=== PATIENT | male | born 1960 | race Caucasian/White ===

== ENCOUNTER 2017-08-24 10:59 | Day surgery (SDC) | payer OTHER ==
[2017-08-17 08:18] VITALS: BMI 25.3
[2017-08-24] VITALS (15 sets, daily range): BP systolic 95–112; BP diastolic 63–74; PULSE 64–80; RESP 11–21; Ht 162.6 cm; Wt 70.8 kg
[~2017-08-24] VITALS: Ht 162.6 cm; Wt 70.8 kg
[~2017-08-24 10:59] MED LIST: ATOR10TA65 PO; BUSP10TA2 PO; OMEP20CA16 PO
[2017-08-24] MEDS ORDERED: FLUO20CA38 PO (11:31)
[2017-08-24] MEDS ORDERED: TAMS-14 PO (11:31)
[2017-08-24] MEDS ORDERED: OXYC-279 PO (11:31)
[2017-08-24] MEDS ORDERED: CEPH500C PO (11:32)
[2017-08-24] MEDS ORDERED: HYDROmorphONE (0.2 MG/ML) 10ML SYG IV PRN ×3 (12:00)
[2017-08-24] MEDS ORDERED: METOCLOPRAMIDE 10 MG INJ IV PRN (12:00)
[2017-08-24] MEDS ORDERED: ONDANSETRON 4 MG INJ IV PRN (12:00)
[2017-08-24] MEDS ORDERED: FENTAnyl 50 MCG/ML VIAL IV PRN ×2 (12:00)
[2017-08-24] MEDS ORDERED: DIPHENHYDRAMINE 50 MG INJ IV PRN (12:00)
[2017-08-24] MEDS ORDERED: MEPERIDINE 25 MG INJ IV PRN (12:00)
[2017-08-24] MEDS ORDERED: NEOMYC/POLYMYX/BACIT 30 GM OINT ONE (12:32)
[2017-08-24] MEDS ORDERED: POLYMYXIN/BACITRACIN 1L IRRIG ONE (12:32)
[2017-08-24] MEDS ORDERED: ROPIVACAINE 0.5 % 30 ML VIAL ONE ×2 (12:32→12:44)
[2017-08-24] MEDS ORDERED: BUPIVACAINE 0.5% (SDV) 30 ML INJ ONE (12:32)
[2017-08-24] MEDS ORDERED: MIDAZOLAM 1 MG/ML 2 ML INJ ONE (12:44)
[2017-08-24] MEDS ORDERED: FENTAnyl 50 MCG/ML VIAL ONE (12:44)
--- NOTE | 2017-08-24 13:25 | HPN ---
Date/Time of Note Date/Time of Note DATE: 08/24/17 TIME: 13:25 Interval H&P Admission Note Pt. seen H&P reviewed: No system changes CHRISTIANO SOUZA MD Aug 24, 2017 13:25
[2017-08-24] MEDS ORDERED: BUPIVACAINE 0.25% (MPF) 30 ML INJ ONE (14:02)
[2017-08-24] MEDS ORDERED: SUGAMMADEX SODIUM 200 MG/2 ML VIAL IV ONE (14:20)
[2017-08-24] MEDS ORDERED: LIDOCAINE 2% (SDV) 5 ML INJ ONE (14:20)
[2017-08-24] MEDS ORDERED: CEFAZOLIN 1 GM INJ ONE (14:20)
[2017-08-24] MEDS ORDERED: SUCCINYLCHOLINE CHLORIDE 100 MG/5 ML SYG IV ONE (14:20)
[2017-08-24] MEDS ORDERED: PROPOFOL 20 ML ONE (14:20)
[2017-08-24] MEDS ORDERED: ROCURONIUM 50 MG INJ ONE (14:20)
[2017-08-24] MEDS ORDERED: PROVENTIL HFA 6.7GM INHALER ONE (14:52)
--- NOTE | 2017-08-24 16:00 | SIPON ---
Date/Time of Note Date/Time of Note DATE: 08/24/17 TIME: 15:59 Operative Report Preoperative Diagnosis Left ankle painful hardware Postoperative Diagnosis Left ankle painful hardware Operation/Procedure Performed Left ankle hardware removal Surgeon David Souza legal administrative assistant none Anesthesia: general, other (popliteal block) Estimated blood loss: none Transfusion Required none Specimen none Grafts/Implants none Complications none DAVID SOUZA MD Aug 24, 2017 16:00
--- NOTE | 2017-08-24 17:48 | RADRPT ---
PROCEDURE: Intraoperative imaging of the left ankle with fluoroscopy. CLINICAL INDICATION: Left ankle pain. Intraoperative. TECHNIQUE: 5 images of the left ankle were obtained in the operating room with an image intensifie r. No radiologist was in attendance. Fluoroscopy time is 7.5 seconds. COMPARISON: No prior study is available for comparison. FINDINGS: Surgical instruments are noted overlying the left ankle. Images demonstrate removal of the hardware from the medial and lateral malleoli. IMPRESSION: 1. Intraoperative imaging of the left ankle. RPTAT: QQ .Cong Sanchez MD, MD Date Time Electronically viewed and signed by .Cong Sanchez MD, on 08/24/2017 17:48 .R/
--- NOTE | 2017-08-24 17:58 | OPR ---
Date/Time of Note Date/Time of Note DATE: 08/24/17 TIME: 17:51 Operative Report Procedure Date: Aug 24, 2017 Preoperative Diagnosis Left ankle painful hardware Postoperative Diagnosis Left ankle painful hardware Operation/Procedure Performed Left ankle hardware removal Surgeon David Souza MD Pattern Worker none Anesthesia Type: general, other (popliteal block) Anesthesiologist: CHRISTOS CHAUDHARY Tourniquet Time: 23 min at 250 mm Hg Estimated Blood Loss: minimal Transfusion none Specimen none Grafts/Implants none Complications none Pt Condition Post Procedure: stable Disposition: PACU Indications Risk Note: Patient was explained the risks and benefits of surgery and the patient's tanana language including not limited to infection, bleeding, injury to blood vessels, nerves, ligaments or tendons. Risks of anesthesia, deep vein thrombosis and need for reduce future surgery. Patient acknowledged these risk by signing the surgical consent form. Patient is a 57-year-old gentleman who had a previous left ankle open reduction internal fixation. He has ongoing pain over the hardware sites. Given his ongoing pain patient is indicated for hardware removal. Procedure Description Patient was met in the preoperative holding area and the operative extremity was confirmed with both patient and consent. Patient's correct extremity was marked accordingly. Patient was then brought back to the operative theater placed supine on the operative table. Patient was then draped in normal sterile fashion. A timeout was taken and all parties in the room agreed with the correct patient, extremity and procedure. Fluoroscopy was brought in and previous hardware sites were confirmed. Incision was made over the medial incision and 2 screws were removed from the site. Incision was then made over the lateral aspect of the ankle and a plate and screws were all removed. The fibula was then rasped and the previous screw holes were curetted. All wounds were irrigated thoroughly and closed in layers with 2-0 Vicryl followed by 3-0 Monocryl and 3-0 nylon. All wounds were then dressed with Xeroform, triple antibiotic ointment and 4 x 4's the patient was placed in a well-padded short leg splint. In the case all sponge and needle counts were correct. Patient was brought to the PACU in stable condition. DAVID SOUZA MD Aug 24, 2017 17:58
== END 2017-08-24 17:53 | disposition home or self-care (01) ==
LOC: SDS 10:59
PROVIDERS: ATTEND Orthopaedic Surgery
DX: Z47.2 Encounter for removal of internal fixation device (principal); I10 Essential (primary) hypertension
CPT/HCPCS: 20680; 73610; 88300; J0690; J2250; J2795; J3010; Z7512; Z7610

== ENCOUNTER 2019-01-18 08:59 | Day surgery (SDC) | payer OTHER ==
[~2019-01-18] VITALS: Ht 165.1 cm; Wt 75.9 kg
[~2019-01-18 08:59] MED LIST changes: +CEPH500C PO; +FLUO20CA38 PO; +OXYC-279 PO; +TAMS-14 PO
[2019-01-18 10:18] VITALS: Ht 165.1 cm; Wt 75.9 kg
[2019-01-18 10:47] VITALS: BP 106/67; PULSE 63; RESP 14
[2019-01-18] MEDS ORDERED: MIDAZOLAM 1 MG/ML 2 ML INJ ONE ×2 (11:18)
[2019-01-18] MEDS ORDERED: FENTAnyl 50 MCG/ML VIAL ONE (11:18)
[2019-01-18 11:36] VITALS: BP 98/62; PULSE 65; RESP 16
== END 2019-01-18 12:04 | disposition home or self-care (01) ==
LOC: GIL 08:59
PROVIDERS: ATTEND Internal Medicine Gastroenterology
DX: K92.1 Melena (principal); K64.8 Other hemorrhoids; K21.0 Gastro-esophageal reflux disease with esophagitis; K29.60 Other gastritis without bleeding
CPT/HCPCS: 43239; 45378; 88305; 88312; J2250; J3010; Z7610

== ENCOUNTER 2019-02-12 06:27 | Day surgery (SDC) | payer OTHER ==
[2019-02-07 17:34] VITALS: BMI 27.5
[~2019-02-12] VITALS: Ht 165.1 cm; Wt 74.3 kg
[2019-02-12] VITALS (12 sets, daily range): BP systolic 90–123; BP diastolic 52–81; PULSE 67–80; RESP 14–22; Ht 165.1 cm; Wt 74.3 kg
[~2019-02-12 06:27] MED LIST changes: -BUSP10TA2 PO; +CEFAZOLIN 2 GM/50 ML (PMX) 50 ML IVPB SCH; -CEPH500C PO; -FLUO20CA38 PO; -OXYC-279 PO; +SOD CHLORIDE 0.9% 1,000 ML IV SCH
[2019-02-12] MEDS ORDERED: BUPIVACAINE 0.25% (MPF) 30 ML INJ ONE (06:50)
[2019-02-12] MEDS ORDERED: ATOR10TA65 PO (06:53)
[2019-02-12] MEDS ORDERED: OMEP20CA16 PO (06:53)
[2019-02-12] MEDS ORDERED: TAMS0.4C2 PO (06:54)
[2019-02-12] MEDS ORDERED: LIDOCAINE 1%/EPI (1:100,000) (MDV) 20 ML ONE (07:38)
--- NOTE | 2019-02-12 07:38 | HPN ---
Date/Time of Note Date/Time of Note DATE: 02/12/19 TIME: 07:38 Interval H&P Admission Note Pt. seen H&P reviewed: No system changes YUNI JOHNSON MD Feb 12, 2019 07:38
--- NOTE | 2019-02-12 07:45 | PREAC ---
Date/Time of Note Date/Time of Note DATE: 02/12/19 TIME: 07:44 Anesthesia Eval and Record Evaluation Time Pre-Procedure Interview DATE: 02/12/19 TIME: 07:44 Age 59 Sex male NPO: 8 hrs Preoperative diagnosis abdominal mass Planned procedure excision of abdominal mass Past Medical History Past Medical History: Includes Cardio: Dyslipidemia Renal: BPH GI: GERD Surgery & Anesthesia Issues No known issue Meds Anticoagulation: No Beta Glenna within 24 hr: No Reason Beta Glenna not given: Pt. not on B-[place] Reported Medications Tamsulosin Hcl* (Tamsulosin Hcl*) 0.4 Mg Cap.er.24h, 0.4 MG PO HS, CAP 02/12/19 Omeprazole* (Omeprazole*) 20 Mg Capsule.dr, 20 MG PO DAILY, #30 CAP 02/12/19 Atorvastatin Calcium (Atorvastatin Calcium) 10 Mg Tablet, 10 MG PO QHS, #30 TAB 02/12/19 Discontinued Reported Medications Tamsulosin Hcl* (Flomax*) 0.4 Mg Cap.er.24h, 0.4 MG PO DAILY, CAP 08/24/17 Omeprazole* (Omeprazole*) 20 Mg Capsule.dr, 20 MG PO DAILY, #30 08/17/17 Atorvastatin (Atorvastatin) 10 Mg Tablet, 10 MG PO DAILY, #30 08/17/17 Current Medications Cefazolin Sodium/ Dextrose 50 ml @ 100 mls/hr ONCE IVPB ; Start 02/12/19 at 06:00; Stop 02/12/19 at 15:00 Sodium Chloride 1,000 ml @ 75 mls/hr [id number] IV Last administered on 02/12/19at 07:05; Admin Dose 75 MLS/HR; Start 02/12/19 at 06:00; Stop 02/12/19 at 23:00 Meds reviewed: Yes Allergies Coded Allergies: No Known Allergy (Unverified , 02/12/19) Allergies Reviewed: Yes Labs/Studies Labs Reviewed: Reviewed by anesthesiologist test: N/A Pre-procedure Exam Last vitals Vital Signs Date Temp Pulse Resp B/P (MAP) Pulse Ox O2 O2 Flow FiO2 Time Delivery Rate 02/12/19 97.2 67 16 123/81 95 06:58 (95) Airway: Adequate mouth opening, Adequate thyromental dist Mallampati: Mallampati III Teeth: Normal Lung: Normal Heart: Normal ASA Physical Status ASA physical status: 2 Emergency: None Pre-operative Attestations Prior to commencing anesthesia and surgery, the patient was re-evaluated, there was verification of: *The patient's identity *The results of appropriate recent lab work and preoperative vital signs *The above evaluation not changing prior to induction *Anesthetic plan, risk benefits, alternative and complications discussed with patient/family; questions answered; patient/family understands, accepts and wi shes to proceed. ERICA SIMS DO Feb 12, 2019 07:45
[2019-02-12] MEDS ORDERED: FENTAnyl 50 MCG/ML VIAL ONE (07:50)
[2019-02-12] MEDS ORDERED: MIDAZOLAM 1 MG/ML 2 ML INJ ONE (07:50)
[2019-02-12] MEDS ORDERED: HYDROmorphONE 1 MG/5 ML IV SYRINGE IV PRN ×2 (08:00)
[2019-02-12] MEDS ORDERED: CEFAZOLIN 1 GM INJ ONE ×2 (08:01)
--- NOTE | 2019-02-12 08:26 | OPR ---
Date/Time of Note Date/Time of Note DATE: 02/12/19 TIME: 08:20 Operative Report Procedure Date: Feb 12, 2019 Preoperative Diagnosis Periumbilical mass Postoperative Diagnosis Nodularity of subcutaneous adipose tissue of the periumbilical abdominal wall Operation/Procedure Performed Excisional biopsy subcutaneous fat nodularity of periumbilical abdominal wall Surgeon see signature line Captain Assistant None Anesthesia Type: MAC Anesthesiologist: ERICA SIMS DO Estimated Blood Loss: minimal Transfusion none Specimen Excisional biopsy subcutaneous fat periumbilical abdominal Grafts/Implants none Complications none Pt Condition Post Procedure: stable Disposition: PACU Indications Patient is a 59-year-old male with a history of hypercholesterolemia and hepatitis B who presented to the office complaining of a mass at the umbilical area. He denied any pain however he was quite anxious at its presence. An ultrasound which was done showed a 1.2 cm x 2.2 cm slightly hypoechoic subcutaneous nodule in the periumbilical area. An MRI did not show any evidence of a periumbilical mass. The patient was scheduled for elective excision for definitive pathological diagnosis. On the morning of surgery, the mass had decreased in size and was barely palpable. Extensive discussion was had with the patient regarding operative versus nonoperative management. We discussed all risks and benefits of surgery which include, but are not limited to: Wound infection, excessive bleeding, mass recurrence, postoperative s eroma/hematoma formation, etc. We also discussed the possibility of a negative exploration without any findings as there is been some improvement in the mass on clinical exam. The patient understood all of this and given his anxiety regarding the presence of the nodule he requested surgical exploration and excision. He accepts all risks and benefits of the procedure. Informed consent was obtained. Procedure Description The patient was brought to the operating room and placed supine on the operating table. Bilateral sequential compression devices were placed on both lower extremities. A dose of broad-spectrum perioperative intravenous antibiotics was given. The area of concern which was located approximately the 11 o'clock position of the umbilicus was preoperatively marked and confirmed with the patient in the holding area. After achieving mild sedation, the patient's abdomen was then prepped and draped in standard surgical fashion. After performance of the surgical timeout 1% lidocaine with epinephrine was injected in a radial fashion around the area of the mass creating a field block. A small transverse incision was then made over the area of the mass using a 15 blade scalpel. Incision was carried down through the skin and dermis into the subcutaneous tissues using Bovie electrocautery. In the subcutaneous tissues there appeared to be some firm nodularity of the subcutaneous fat. This area was excised and passed off the field as specimen. Dissection was continued down to the level anterior rectus fascia. There was no other suspicious lesions identified. There were no hernias identified. At this point the wound cavity was irrigated and the irrigant returned clear. Hemostasis was inspected for and noted to be total. Further local anesthesia was applied around the skin of the incision site. The skin was then reapproximated using 4-0 Monocryl suture in a running subcuticular fashion. Incision was cleaned and Dermabond was applied. The patient was transferred to the recovery room in stable condition. All counts were correct at the end of the case x2. YUNI JOHNSON MD Feb 12, 2019 08:26
[2019-02-12] MEDS ORDERED: ONDANSETRON 4 MG INJ IV PRN (08:30)
[2019-02-12] MEDS ORDERED: IBUPROFEN 600 MG TAB PO PRN (08:30)
--- NOTE | 2019-02-12 08:31 | PAC ---
Date/Time of Note Date/Time of Note DATE: 02/12/19 TIME: 08:30 Post-Anesthesia Notes Post-Anesthesia Note Last documented vital signs Vital Signs Date Temp Pulse Resp B/P (MAP) Pulse Ox O2 O2 Flow FiO2 Time Delivery Rate 02/12/19 98 71 18 99/59 100 0830 Activity: WNL Respiratory function: WNL Cardiovascular function: WNL Mental status: Baseline Pain reasonably controlled: Yes Hydration appropriate: Yes Nausea/Vomiting absent: Yes ERICA SIMS DO Feb 12, 2019 08:31
== END 2019-02-12 10:00 | disposition home or self-care (01) ==
LOC: SDS 06:27
PROVIDERS: ATTEND Surgery
DX: E65 Localized adiposity (principal); L98.7 Excessive and redundant skin and subcutaneous tissue
CPT/HCPCS: 11404; 88307; J0690; J2250; J3010; Z7512; Z7610